=== PATIENT | male | born 1980 | race Caucasian/White ===

== ENCOUNTER 2017-08-28 18:38 | Inpatient (IN) | payer MEDICAID ==
[~2017-08-28] VITALS: Ht 167.6 cm; Wt 80.3 kg
[2017-08-28 19:51] LABS: BASOPHILS # (AUTO) 0.04 K/uL (0.00-0.20); BASOPHILS % (AUTO) 0.4 % (0.0-2.0); EOSINOPHILS # (AUTO) 0.14 K/uL (0.00-0.70); EOSINOPHILS % (AUTO) 1.51 % (1.0-6.0); HEMATOCRIT 42.6 % (41-53); HEMOGLOBIN 14.2 g/dL (13.5-17.5); LYMPHOCYTES # (AUTO) 1.9 K/uL (1.0-4.8); LYMPHOCYTES % (AUTO) 20.3 % (22.0-44.0); MEAN CORPUSCULAR HGB CONC 33.4 G/dL (31.0-37.0); MEAN CORPUSCULAR VOLUME 96 fL (80-100); MONOCYTES # (AUTO) 0.7 K/uL (0.1-1.0); MONOCYTES % (AUTO) 7.6 % (2.0-9.0); NEUTROPHILS # (AUTO) 6.5 K/uL (1.8-7.7); NEUTROPHILS % (AUTO) 70.2 % (40.0-70.0); PLATELET COUNT (AUTO) 317 K/uL (150-450); RED BLOOD CELL COUNT(AUTO) 4.45 MIL/uL (4.50-5.90); RED CELL DISTRIBUTION WIDTH 13.2 % (11.5-14.5)
[2017-08-28 19:59] LABS: ANION GAP 7 mmol/L (8-16); CALCIUM, TOTAL 8.8 mg/dL (8.8-10.5); CARBON DIOXIDE 34 mmol/L (22-29); CHLORIDE 99 mmol/L (98-107); CREATININE 1.05 mg/dL (0.60-1.30); GLOMERULAR FILTR. RATE CALC > 60 mL/min (>60); GLUCOSE,RANDOM 113 mg/dL (70-110); POTASSIUM 4.2 mmol/L (3.5-5.1); SODIUM SERUM 140 mmol/L (136-145); UREA NITROGEN, BLOOD 13 mg/dL (7-18)
[2017-08-28 20:05] LABS: ALANINE AMINOTRANSFERASE 32 U/L (12-78); ALBUMIN 3.8 g/dL (3.4-5.0); ALKALINE PHOSPHATASE 94 U/L (46-116); ASPARTATE AMINOTRANSFERASE 21 U/L (15-37); BILIRUBIN,TOTAL 0.3 mg/dL (0.1-1.0); TOTAL PROTEIN, SERUM 7.6 g/dL (6.4-8.2)
[2017-08-28 20:13] LABS: AMPHET/METH SCREEN,URINE NEGATIVE (NEGATIVE); BARBITURATE SCREEN, URINE NEGATIVE (NEGATIVE); BENZODIAZEPINES SCREEN,URINE NEGATIVE (NEGATIVE); CANNABINOID SCREEN,URINE NEGATIVE (NEGATIVE); COCAINE SCREEN,URINE NEGATIVE (NEGATIVE); METHADONE SCREEN, URINE NEGATIVE (NEGATIVE); OPIATE SCREEN,URINE NEGATIVE (NEGATIVE)
[2017-08-28 20:14] LABS: PHENCYCLIDINE SCREEN,URINE NEGATIVE (NEGATIVE)
[2017-08-28] MEDS ORDERED: HALOPERIDOL 5 MG TABLET PO PRN (20:15)
[2017-08-28] MEDS ORDERED: LORazepam 2 MG TABLET PO PRN (20:15)
[2017-08-28] MEDS ORDERED: ZOLPIDEM TARTRATE 10 MG TABLET PO PRN (20:15)
[2017-08-29 09:04] LABS: CHOL/HDL RATIO 2.9 (4.2-7.3)
[2017-08-29] MEDS ORDERED: PNEUMOCOCCAL VACCINE POLYVALENT 0.5 ML VIAL [PPSV23] IM ONE (17:30)
[2017-08-29] MEDS ORDERED: INFLUENZA VIRUS VACCINE QVS 2017-18 (3YR+)/PF 60 MCG/0.5 ML SYRINGE IM ONE (17:30)
[2017-08-29 20:52] VITALS: BP 128/78
[2017-08-30 00:15] VITALS: BP 116/67
[2017-08-30 08:00] VITALS: BP 129/79
[2017-08-30 16:55] VITALS: BP 124/72
[2017-08-31 06:26] VITALS: BP 126/75
[2017-08-31] MEDS ORDERED: HALOPERIDOL LACTATE 5 MG/ML VIAL IM ONE (16:15)
[2017-08-31] MEDS ORDERED: LORazepam 2 MG/ML VIAL IM ONE (16:15)
[2017-08-31] MEDS ORDERED: DiphenhydrAMINE HCL 50 MG/ML VIAL IM ONE (16:15)
[2017-08-31 16:37] VITALS: BP 122/71
[2017-08-31 17:00] VITALS: BP 131/88
[2017-08-31] MEDS: RisperiDONE 1 MG TABLET PO SCH (20:06)
[2017-09-01 06:53] VITALS: BP 112/62
[2017-09-01] MEDS: RisperiDONE 1 MG TABLET PO SCH ×2 (08:20→20:10)
[2017-09-01 08:56] VITALS: BP 107/63
[2017-09-02 06:59] VITALS: BP 117/78
[2017-09-02 08:09] VITALS: BP 117/68
[2017-09-02] MEDS: RisperiDONE 1 MG TABLET PO SCH ×2 (09:15→20:30)
[2017-09-02 16:00] VITALS: BP 123/85
[2017-09-02] MEDS ORDERED: MAG HYDROX/AL HYDROX/SIMETH ES 30 ML SUSPENSION UDCUP PO PRN (22:30)
[2017-09-03 01:47] VITALS: BP 106/79
[2017-09-03 08:16] VITALS: BP 116/68
[2017-09-03] MEDS: RisperiDONE 1 MG TABLET PO SCH (08:21)
[2017-09-03] MEDS ORDERED: RISP1 PO (14:35)
== END 2017-09-03 15:45 | disposition home or self-care (01) | DRG 753 ==
LOC: EMS 18:39 → B2S 08-29 14:16 → B3A 08-31 20:10
DX: F31.4 Bipolar disorder, current episode depressed, severe, without psychotic features (principal); R45.851 Suicidal ideations; Z91.14 Patient's other noncompliance with medication regimen; G47.00 Insomnia, unspecified
CPT/HCPCS: 93005; 99285; G0480; J1200; J1630; J2060

== ENCOUNTER 2018-04-10 09:11 | Inpatient (IN) | payer MEDICAID ==
[~2018-04-10] VITALS: Ht 167.6 cm; Wt 81.8 kg
[~2018-04-10 09:11] MED LIST: RISP1 PO
[2018-04-10 11:15] LABS: AMPHET/METH SCREEN,URINE NEGATIVE (NEGATIVE); BARBITURATE SCREEN, URINE NEGATIVE (NEGATIVE); BENZODIAZEPINES SCREEN,URINE NEGATIVE (NEGATIVE); CANNABINOID SCREEN,URINE NEGATIVE (NEGATIVE); COCAINE SCREEN,URINE NEGATIVE (NEGATIVE); METHADONE SCREEN, URINE NEGATIVE (NEGATIVE); OPIATE SCREEN,URINE NEGATIVE (NEGATIVE)
[2018-04-10] MEDS ORDERED: HALOPERIDOL 5 MG TABLET PO ONE (11:15)
[2018-04-10] MEDS ORDERED: LORazepam 2 MG TABLET PO ONE (11:15)
[2018-04-10 11:17] LABS: PHENCYCLIDINE SCREEN,URINE NEGATIVE (NEGATIVE)
[2018-04-10] MEDS ORDERED: MAGNESIUM HYDROXIDE SUSPENSION 30 ML UDCUP PO PRN (12:30)
[2018-04-10] MEDS ORDERED: MAG HYDROX/AL HYDROX/SIMETH ES 30 ML SUSPENSION UDCUP PO PRN (12:30)
[2018-04-10] MEDS ORDERED: ACETAMINOPHEN 325 MG TABLET PO PRN (12:30)
[2018-04-10] MEDS ORDERED: ZOLPIDEM TARTRATE 10 MG TABLET PO PRN (12:30)
[2018-04-10] MEDS ORDERED: OLANZapine 5 MG RAPDIS TABLET PO PRN (12:30)
[2018-04-10] MEDS ORDERED: LORazepam 2 MG TABLET PO PRN ×2 (12:30→18:00)
[2018-04-10] MEDS ORDERED: LOPERAMIDE HCL 2 MG CAPSULE PO PRN (12:30)
[2018-04-10 12:33] LABS: BASOPHILS % (AUTO) 0.7 % (0.0-2.0); EOSINOPHILS % (AUTO) 2.3 % (1.0-6.0); HEMOGLOBIN 12.1 g/dL (13.5-17.5); LYMPHOCYTES # (AUTO) 1.6 K/uL (1.0-4.8); LYMPHOCYTES % (AUTO) 17.7 % (22.0-44.0); MEAN CORPUSCULAR HEMOGLOBIN 29.5 pg (26.0-34.0); MEAN CORPUSCULAR HGB CONC 32.8 G/dL (31.0-37.0); MEAN CORPUSCULAR VOLUME 90 fL (80-100); MONOCYTES # (AUTO) 0.8 K/uL (0.1-1.0); MONOCYTES % (AUTO) 8.7 % (2.0-9.0); NEUTROPHILS # (AUTO) 6.4 K/uL (1.8-7.7); NEUTROPHILS % (AUTO) 70.6 % (40.0-70.0); PLATELET COUNT (AUTO) 312 K/uL (150-450); RED BLOOD CELL COUNT(AUTO) 4.12 MIL/uL (4.50-5.90); RED CELL DISTRIBUTION WIDTH 16.6 % (11.5-14.5)
[2018-04-10 12:39] LABS: ANION GAP 7 mmol/L (8-16); CALCIUM, TOTAL 8.3 mg/dL (8.8-10.5); CARBON DIOXIDE 28 mmol/L (22-29); CHLORIDE 106 mmol/L (98-107); CREATININE 0.52 mg/dL (0.60-1.30); GLOMERULAR FILTR. RATE CALC > 60 mL/min (>60); GLUCOSE,RANDOM 90 mg/dL (70-110); POTASSIUM 3.9 mmol/L (3.5-5.1); SODIUM SERUM 141 mmol/L (136-145); UREA NITROGEN, BLOOD 10 mg/dL (7-18)
[2018-04-10 12:45] LABS: ALANINE AMINOTRANSFERASE 24 U/L (12-78); ALBUMIN 3.4 g/dL (3.4-5.0); ALKALINE PHOSPHATASE 81 U/L (46-116); ASPARTATE AMINOTRANSFERASE 18 U/L (15-37); BILIRUBIN,TOTAL 0.4 mg/dL (0.1-1.0); TOTAL PROTEIN, SERUM 6.7 g/dL (6.4-8.2)
[2018-04-10] MEDS ORDERED: CYANOCOBALAMIN 1,000 MCG/ML VIAL IM ONE (18:00)
[2018-04-10] MEDS: OLANZapine 5 MG RAPDIS TABLET PO SCH (21:00)
[2018-04-10] MEDS: DIVALPROEX SODIUM 500 MG ER TABLET PO SCH (21:00)
[2018-04-11] VITALS (11 sets, daily range): BP systolic 102–117; BP diastolic 55–75
[2018-04-11] MEDS ORDERED: LORazepam 2 MG TABLET PO PRN (07:00)
[2018-04-11] MEDS: NALTREXONE HCL 50 MG TABLET PO SCH (08:48)
[2018-04-11] MEDS: LORazepam 2 MG TABLET PO SCH ×4 (08:49→20:27)
[2018-04-11] MEDS: OLANZapine 5 MG RAPDIS TABLET PO SCH (20:27)
[2018-04-11] MEDS: DIVALPROEX SODIUM 500 MG ER TABLET PO SCH (20:27)
[2018-04-12 03:01] VITALS: BP 117/68
[2018-04-12 03:02] VITALS: BP 117/69
[2018-04-12 08:09] VITALS: BP 124/72
[2018-04-12] MEDS: LORazepam 2 MG TABLET PO SCH ×4 (08:46→21:00)
[2018-04-12] MEDS: NALTREXONE HCL 50 MG TABLET PO SCH (08:46)
[2018-04-12 16:00] VITALS: BP 114/65
[2018-04-12] MEDS: DIVALPROEX SODIUM 500 MG ER TABLET PO SCH (21:00)
[2018-04-12] MEDS: OLANZapine 10 MG RAPDIS TABLET PO SCH (21:00)
[2018-04-13 06:29] VITALS: BP 109/71
[2018-04-13] MEDS: FERROUS SULFATE 325 MG EC TABLET PO SCH (07:00)
[2018-04-13] MEDS ORDERED: LORazepam 1 MG TABLET PO PRN (07:00)
[2018-04-13 08:00] VITALS: BP 119/79
[2018-04-13 08:07] VITALS: BP 119/79
[2018-04-13] MEDS: LORazepam 1 MG TABLET PO SCH ×4 (09:00→20:28)
[2018-04-13] MEDS: NALTREXONE HCL 50 MG TABLET PO SCH (09:00)
[2018-04-13] MEDS ORDERED: DIVA500T52 PO (15:37)
[2018-04-13] MEDS ORDERED: NALT50TA PO (15:37)
[2018-04-13] MEDS ORDERED: OLAN10TA22 PO (15:37)
[2018-04-13 16:00] VITALS: BP 109/71
[2018-04-13] MEDS: DIVALPROEX SODIUM 500 MG ER TABLET PO SCH (20:28)
[2018-04-13] MEDS: OLANZapine 10 MG RAPDIS TABLET PO SCH (20:28)
[2018-04-14 01:41] VITALS: BP 109/79
[2018-04-14] MEDS ORDERED: DIVA500T52 PO (04:54)
[2018-04-14] MEDS ORDERED: OLAN10TA6 PO (04:54)
[2018-04-14] MEDS ORDERED: NALT50TA6 PO (04:54)
[2018-04-14] MEDS ORDERED: FERR-89 PO (04:54)
[2018-04-14] MEDS: FERROUS SULFATE 325 MG EC TABLET PO SCH (06:21)
[2018-04-14] MEDS ORDERED: LORazepam 1 MG TABLET PO PRN (07:00)
[2018-04-14 08:21] VITALS: BP 103/60
[2018-04-14] MEDS: NALTREXONE HCL 50 MG TABLET PO SCH (10:30)
== END 2018-04-14 13:15 | disposition home or self-care (01) | DRG 750 ==
LOC: EMS 09:11 → B3A 21:01 → B2S 04-13 22:44
PROVIDERS: ADMIT Psychiatry & Neurology Psychiatry; ATTEND Psychiatry & Neurology Psychiatry
DX: F20.0 Paranoid schizophrenia (principal); Z91.14 Patient's other noncompliance with medication regimen; D64.9 Anemia, unspecified; F10.10 Alcohol abuse, uncomplicated; Z81.8 Family history of other mental and behavioral disorders
CPT/HCPCS: 99285; G0480